=== PATIENT | female | born 1980 | race Caucasian/White ===

== ENCOUNTER 2017-05-03 12:28 | Emergency (ER) | payer SELFPAY ==
[~2017-05-03] VITALS: Ht 177.8 cm; Wt 82.1 kg
[2017-05-03 12:30] VITALS: BP 141/91; PULSE 99; RESP 16; TEMP 98.1; O2SAT 99
[2017-05-03] MEDS ORDERED: oxyCODONE/ACETAMINOPHEN 5 MG/325 MG TAB PO ONE (13:15)
[2017-05-03] MEDS ORDERED: CLINDAMYCIN 150 MG CAP PO ONE (13:15)
--- NOTE | 2017-05-03 13:45 | PD ---
HPI Chief Complaint: Oral / Dental Pain or Problem Time Seen by Provider: 12:49 Travel History International Travel<30 days: No Contact w/Intl Traveler<30days: No Traveled to known affect area: No History of Present Illness HPI 36yo F with no PMH presents to the ED with c/o right upper tooth pain yesterday and swelling in right face today. Denies any fever, chest pain, sob, n/v, abdominal pain, drooling, change in voice, throat pain or ear pain. PFSH Past Medical History Hx Anticoagulant Therapy: No Anxiety: Yes Depression: Yes Diabetes: No Tetanus Vaccination: > 5 Years Influenza Vaccination: No ?: Unknown LMP: "about 2 weeks ago" Dilation and Curettage (D&C): Yes Social History Alcohol Use: Yes (occ) Tobacco Use: Yes Allergies-Medications (Allergen,Severity, Reaction): Coded Allergies: No Known Allergies (Unverified , 05/03/17) Reported Meds & Prescriptions Reported Meds & Active Scripts Active Clindamycin (Clindamycin HCl) 300 Mg Cap 300 Mg PO Q6H 7 Days Percocet (Oxycodone-Acetaminophen) 5-325 mg Tab 1 Tab PO Q6H PRN Review of Systems Except as stated in HPI: all other systems reviewed are Neg Physical Exam Narrative GENERAL: 36yo F in moderate distress. SKIN: Focused skin assessment warm/dry. HEAD: Atraumatic. Normocephalic. EYES: Pupils equal and round. No scleral icterus. No injection or drainage. ENT: +TTP tooth #1. +Periapical fluctuance over tooth #1. No trismus. No drooling. No tripoding. Uvula midline. No ttp bilateral mandible. Mild erythema and edema in right maxilla. NECK: Trachea midline. No JVD. CARDIOVASCULAR: Regular rate and rhythm. No murmur appreciated. RESPIRATORY: No accessory muscle use. Clear to auscultation. Breath sounds equal bilaterally. GASTROINTESTINAL: Abdomen soft, non-tender, nondistended. MUSCULOSKELETAL: No obvious deformities. No clubbing. No cyanosis. No edema. NEUROLOGICAL: Awake and alert. No obvious cranial nerve deficits. Motor grossly within normal limits. Normal speech. PSYCHIATRIC: Appropriate mood and affect; insight and judgment normal. Data Data Last Documented VS Vital Signs Date Time Temp Pulse Resp B/P (MAP) Pulse Ox O2 Delivery O2 Flow Rate FiO2 05/03/17 12:30 98.1 99 16 141/91 (108) 99 Orders Orders Clindamycin (Cleocin) (05/03/17 13:15) Oxycodone-Acetamin 5-325 Mg (Percocet (05/03/17 13:15) Ed Discharge Order (05/03/17 14:00) MDM Medical Decision Making Medical Screen Exam Complete: Yes Emergency Medical Condition: Yes Differential Diagnosis Periapical abscess vs. dental caries vs. facial cellulitis Narrative Course 36yo nontoxic appearing female here with right upper tooth pain and mild right facial swelling. Able to tolerate PO. No trismus, tongue elevation. No fever. Pt given clindamycin and percocet for pain. I initially did want to obtain CT scan to evaluate if the infection is deeper but pt is refusing CT scan and is otherwise well appearing so agreed not to do CT scan at this time. Pt given percocet and states pain has improved. Offered I&D but pt said she rather go to her dentist the next day and have them do it there. Return precautions given. Diagnosis Primary Impression: Pain, dental Patient Instructions: General Instructions Departure Forms: Tests/Procedures Additional Instructions: Please follow up with your dentist today or tomorrow. Return to the ED if symptoms worsen. Med/Other Pt SpecificInfo: Prescription(s) given Scripts Clindamycin (Clindamycin) 300 Mg Cap 300 MG PO Q6H for Infection for 7 Days, #28 CAP 0 Refills Prov: GrimaldoParis baker 05/03/17 Oxycodone-Acetaminophen (Percocet) 5-325 mg Tab 1 TAB PO Q6H Y for PAIN, #7 TAB 0 Refills Prov: [place] Grimaldo 05/03/17 Disposition: 01 DISCHARGE HOME Condition: Stable [place] Grimaldo May 03, 2017 13:45
[2017-05-03] MEDS ORDERED: PERC5TAB12 PO (14:00)
[2017-05-03] MEDS ORDERED: CLIN300C5 PO (14:00)
== END 2017-05-03 14:29 | disposition home or self-care (01) ==
LOC: PHED 12:28
DX: K08.89 Other specified disorders of teeth and supporting structures (principal); Z72.0 Tobacco use
CPT/HCPCS: 99284